=== PATIENT | male | born 1945 | race Two or more races ===

== ENCOUNTER 2020-04-03 20:09 | Emergency (ER) | payer OTHER ==
[~2020-04-03] VITALS: Ht 172.7 cm; Wt 108.9 kg
--- NOTE | 2020-04-03 20:10 | NUR ---
DR MADDEN AT BEDSIDE FOR MSE.
[2020-04-03] MEDS ORDERED: IV NORMAL SALINE 1000 ML BAG IV ONE (20:15)
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
[2020-04-03] MEDS ORDERED: LORAZEPAM 2 MG/1 ML VIAL ONE (20:43)
[2020-04-03] MEDS ORDERED: LORAZEPAM 2 MG/1 ML VIAL IV ONE (20:45)
[2020-04-03 20:49] LABS: BASOPHILS # (AUTO) 0.1 K/uL (0.0-8.0); BASOPHILS % (AUTO) 0.6 % (0.0-2.0); EOSINOPHILS # (AUTO) 0.7 K/uL (0.0-0.7); EOSINOPHILS % (AUTO) 8.9 % (0.0-7.0); HEMATOCRIT 38.1 % (36.7-47.1); HEMOGLOBIN 12.5 g/dL (12.5-16.3); LYMPHOCYTES # (AUTO) 2.5 K/uL (20.0-40.0); LYMPHOCYTES % (AUTO) 30.2 % (20.5-51.5); MEAN CORPUSCULAR HEMOGLOBIN 29.2 uug (23.8-33.4); MEAN CORPUSCULAR HGB CONC 33 g/dL (32.5-36.3); MEAN CORPUSCULAR VOLUME 89.1 fL (73.0-96.2); MONOCYTES # (AUTO) 0.9 K/uL (2.0-10.0); MONOCYTES % (AUTO) 10.7 % (0.0-11.0); NEUTROPHILS # (AUTO) 4.1 K/uL (1.8-8.9); NEUTROPHILS % (AUTO) 49.6 % (38.5-71.5); PLATELET COUNT (AUTO) 168 K/uL (152-348); RED BLOOD CELL COUNT(AUTO) 4.28 MIL/uL (4.06-5.63); WHITE BLOOD COUNT (AUTO) 8.3 K/uL (3.6-10.2)
--- NOTE | 2020-04-03 20:49 | NUR ---
PT DOWN FOR CT AT THIS TIME, STABLE CONDITION.
[2020-04-03 20:52] LABS: *BILIRUBIN,URIN NEGATIVE (NEGATIVE); *BLOOD, URINE NEGATIVE (NEGATIVE); *CLARITY,URINE CLEAR (CLEAR); *COLOR,URINE LIGHT YELLOW (YELLOW); *KETONES,URINE NEGATIVE (NEGATIVE); *UROBILINOGEN,URINE 0.2 E.U./dl (NORMAL); LEUKOCYTE ESTERASE ,URINE NEGATIVE (NEGATIVE); NITRITE, URINE NEGATIVE (NEGATIVE); UGLUCOSE NEGATIVE (NEGATIVE)
[2020-04-03 20:58] LABS: *AMPHETAMINE, URINE NEGATIVE (NEGATIVE); *BARBITURATE, URINE NEGATIVE (NEGATIVE); *CANNABINOID, URINE NEGATIVE (NEGATIVE); *COCCAINE, URINE NEGATIVE (NEGATIVE); *OPIATE, URINE NEGATIVE (NEGATIVE); *PHENCYCLIDINE SCREEN,URINE NEGATIVE (NEGATIVE)
[2020-04-03 21:06] LABS: ETHANOL 294 MG/DL (0-0)
[2020-04-03 21:08] LABS: ALANINE AMINOTRANSFERASE 15 U/L (16-63); ALKALINE PHOSPHATASE 115 U/L (50-136); ASPARTATE AMINOTRANSFERASE 22 U/L (15-37); BILIRUBIN,DIRECT 0.1 mg/dL (0.0-0.2); BILIRUBIN,TOTAL 0.4 mg/dL (0.2-1.0); CARBON DIOXIDE 23 mmol/L (21-32); CHLORIDE 104 mmol/L (98-107); CREATININE 0.9 mg/dL (0.6-1.3); GLUCOSE 159 mg/dL (74-106); POTASSIUM 4.5 mmol/L (3.5-5.1); TOTAL PROTEIN, SERUM 7.7 g/dL (6.4-8.2)
--- NOTE | 2020-04-03 21:10 | NUR ---
Patient returned from CT at this time
[2020-04-03 21:15] LABS: ACETAMINOPHEN < 2.0 ug/mL (10-30); UREA NITROGEN, BLOOD 20 mg/dL (7-18)
--- NOTE | 2020-04-03 23:16 | NUR ---
PT IS NOW MORE AWAKE, ALERT AND VERBALIZED THAT HE HAS HIS EMERGENCY CONTACT INFORMATION IN HIS WALLET. FOUND A CARD WITH A LIST OF HIS RELATIVES AND NUMBERS, CALLED . [facility] TRANSLATED FOR RN. AND THEY WERE ABLE TO BE NOTIFIED THAT PER MD, PATIENT IS READY TO BE DISCHARGED HOME VIA FAMILY CUSTODY ASSISTANT.
--- NOTE | 2020-04-03 23:40 | NUR ---
Patient discharged to home in stable condition. Written and verbal after care instructions given. Patient verbalizes understanding of instructions. Stressed follow up or return to ER for worsening s/s. Patient discharged to home in stable condition. IV removed. Catheter intact and site benign. Pressure and 4x4 gauze applied to site. No bleeding noted. Ambulated out of ER in steady gait. Family picked patient up.
[2020-04-03 23:42] VITALS: BP 140/90
== END 2020-04-03 23:43 | disposition home or self-care (01) ==
LOC: ER 20:12
DX: F10.129 Alcohol abuse with intoxication, unspecified (principal); Y90.8 Blood alcohol level of 240 mg/100 ml or more; I45.10 Unspecified right bundle-branch block; I13.10 Hypertensive heart and chronic kidney disease without heart failure, with stage 1 through stage 4 chronic kidney disease, or unspecified chronic kidney disease; N18.9 Chronic kidney disease, unspecified; E11.9 Type 2 diabetes mellitus without complications; R22.0 Localized swelling, mass and lump, head; G31.9 Degenerative disease of nervous system, unspecified; M67.88 Other specified disorders of synovium and tendon, other site
CPT/HCPCS: 36415; 70450; 71045; 72125; 80048; 80076; 80307 ×2; 80329; 81001; 84484; 85025; 85730; 93005; 96361; 96374; 99285; G0480; J2060; 70030-TC; A4663; J7030